=== PATIENT | female | born 2000 | race Caucasian/White ===

== ENCOUNTER 2023-05-13 09:50 | Emergency (ER) | payer OTHER, SELFPAY ==
[2023-05-13 10:03] VITALS: BP 89/58; PULSE 98; RESP 20; TEMP 36.6; O2SAT 98; BMI 27.4
[2023-05-13 10:54] LABS: Strep A DNA Probe* NOT DETECTED (Not Detectd)
[2023-05-13 11:04] LABS: PCR FLU A Negative PCR FLU A (Negative); PCR FLU B Negative PCR FLU B (Negative); PCR RSV Negative PCR RSV (Negative)
[2023-05-13 11:14] LABS: SARS PCR* Negative SARS-CoV-2 (Negative)
--- NOTE | 2023-05-13 11:39 | ED.GENADULT ---
HPI - General Adult General Date Seen: 05/13/23 Stated complaint: Fever, pink eye, coughing Time Seen by Provider: 05/13/23 11:17 Source: patient Mode of arrival: ambulatory Limitations: no limitations History of Present Illness HPI narrative: Patient is a 22-year-old generally healthy young woman who presents for evaluation of cold and flu symptoms over the past 5 days, now with associated pink eye on the right as well as right ear pain. No fevers that she knows of, no significant cough or shortness of breath. Mild sore throat, headache, congestion. Related Data Previous Rx's Medication Instructions Recorded dextroamphetamine-amphetamine ER 10 mg PO QAM ADHD #30 caps 02/03/22 10 mg 24hr capsule,extend release (Adderall XR) amoxicillin 250 mg-potassium 15 ml PO BID #300 mL 05/13/23 clavulanate 62.5 mg/5 mL oral suspension (Augmentin) Allergies Allergy/AdvReac Type Severity Reaction Status Date / Time No Known Drug Allergies Allergy Verified 05/13/23 10:03 [facility] Medical History (Updated 05/13/23 @ 11:28 by Clementine Salazar MD) ADHD ?F90.9 - Attention-deficit hyperactivity disorder, unspecified type (ICD-10) Exam Narrative: Exam Narrative: Vital signs as below In general, an alert, well-appearing Young woman. Head: Normocephalic, atraumatic Eyes: Conjunctiva injected on the right, minimally on the left. Pupils equal and reactive. ENT: Nares Mildly congested. Mucous membranes moist. Throat normal. Right TM is erythematous, landmarks not seen. Left TM is pink but landmarks are seen. Neck: Supple. No stridor. Heart: Regular rate and rhythm without murmur. Lungs: Clear. No increased work of breathing. Extremities: Well perfused. Skin: Warm and dry. No rash or lesion. Neurologic: Alert, conversant. Const: Vital Signs, click to edit/add: Vital Signs - 24 hr 05/13/23 10:03 Temperature 97.8 F Pulse Rate [Pulse Oximeter] 98 Respiratory Rate 20 Blood Pressure [Ri ght Upper Arm] 89/58 L Pulse Oximetry 98 Documenting provider has reviewed patient's vital signs: yes Course Course ED Course: Patient presents with cold symptoms associated with conjunctivitis and otitis on the right. Will treat with Augmentin to cover for possible H flu. Discussed that symptoms could be viral, in which case it may take a few days to improve. Should feel better within 2-[address], if not recheck with primary care. Return at any time for acute worsening Vital Signs Vital signs: Initial Vital Signs Temperature 97.8 F 05/13/23 10:03 Temperature Source Temporal Artery Scan 05/13/23 10:03 Pulse Rate 98 05/13/23 10:03 Respiratory Rate 20 05/13/23 10:03 Blood Pressure 89/58 L 05/13/23 10:03 Blood Pressure Mean 68 L 05/13/23 10:03 Pulse Oximetry 98 05/13/23 10:03 Vital Signs Temperature 97.8 F 05/13/23 10:03 Pulse Rate 98 05/13/23 10:03 Respiratory Rate 20 05/13/23 10:03 Blood Pressure 89/58 L 05/13/23 10:03 Pulse Oximetry 98 05/13/23 10:03 Temperature 97.8 F 05/13/23 10:03 Pulse Rate 98 05/13/23 10:03 Respiratory Rate 20 05/13/23 10:03 Blood Pressure 89/58 L 05/13/23 10:03 Pulse Oximetry 98 05/13/23 10:03 Medical Decision Making Lab Data Labs: Lab Results 05/13/23 Range/Units 10:12 SARS-CoV-2 (PCR) Negative SARS-CoV-2 (Negative) Influenza Type A (PCR) Negative PCR FLU A (Negative) Influenza Type B (PCR) Negative PCR FLU B (Negative) RSV (PCR) Negative PCR RSV (Negative) Group A Strep DNA NOT DETECTED (Not Detectd) Discharge Plan Discharge Clinical Impression: Acute right otitis media, Conjunctivitis Patient Disposition: Home, Self-Care Condition: Stable Instructions: Ear Infection (ED), Conjunctivitis (ED) Additional Instructions: antibiotic as prescribed. Return for worsening or new symptoms, you should feel improved in 2-3 days and should be seen for recheck if not. Prescriptions: New amoxicillin-pot clavulanate [Augmentin] 250-62.5 mg/5 mL suspension for reconstitution 15 ml PO BID Qty: 300 0RF No Action dextroamphetamine-amphetamine [Adderall XR] 10 mg capsule,extended release 24hr 10 mg PO QAM Qty: 30 0RF Follow Up/Referrals: Dipesh Miles MD [Primary Care Provider] - Stand Alone Forms: [employer] Info Instructions
== END 2023-05-13 11:48 | disposition home or self-care (01) ==
LOC: ED 11:30
PROVIDERS: Emergency Provider Emergency Medicine; PCP Internal Medicine
DX: H66.91 Otitis media, unspecified, right ear (principal); H10.023 Other mucopurulent conjunctivitis, bilateral
CPT/HCPCS: 87631; 87651; 99283; 99284